=== PATIENT | female | born 1950 | race Caucasian/White ===

== ENCOUNTER 2016-09-20 02:51 | Emergency (ER) | payer MEDICARE, OTHER ==
[~2016-09-20] VITALS: Ht 160 cm; Wt 58.5 kg
[~2016-09-20 02:51] MED LIST: ASPI-664 PO; BENA20TA48 PO; DOCU-144 PO; HYDR-3498 PO; IBUP800T25 PO
[2016-09-20 02:56] VITALS: Ht 160 cm; Wt 58.5 kg
--- NOTE | 2016-09-20 03:48 | RADRPT ---
PROCEDURE: XR Chest. CLINICAL INDICATION: Chest pain TECHNIQUE: AP Portable chest. COMPARISON: 08/24/2014 FINDINGS: There is mild cardiomegaly. The lungs are clear. The osseous structures are unremarkable. IMPRESSION: No acute findings. RPTAT: HIKT .Lauro Alvarenga MD, Date Time Electronically viewed and signed by .Lauro Alvarenga MD, MD on 09/20/2016 03:48 .T/
[2016-09-20] MEDS ORDERED: OMEP40CA6 PO (04:14)
[2016-09-20] MEDS ORDERED: GABA300C16 PO (04:14)
[2016-09-20 04:29] LABS: BASOPHILS % 0.3 % (0.0-2.0); EOSINOPHILS # 0.1 10^3/ul (0.0-0.5); EOSINOPHILS % 0.9 % (0.0-7.0); HEMATOCRIT 37.6 % (37.0-47.0); HEMOGLOBIN 12.7 g/dl (12.0-16.0); MEAN CORPUSCULAR HGB CONC 33.8 g/dl (32.0-37.0); MEAN CORPUSCULAR VOLUME 88.7 fl (82.0-101.0); MEAN PLATELET VOLUME 9.6 fl (7.4-10.4); MONOCYTE # 0.5 10^3/ul (0.3-0.9); MONOCYTES % 5.3 % (0.0-11.0); NEUTROPHIL # 6.5 10^3/ul (1.6-7.5); NEUTROPHILS % 71.3 % (39.0-77.0); PLATELET COUNT 287 10^3/UL (140-415); RED BLOOD COUNT 4.24 10^6/ul (4.20-5.40); RED CELL DISTRIBUTION WIDTH 13.4 % (11.5-14.5); WHITE BLOOD COUNT 9.1 10^3/ul (4.8-10.8)
[2016-09-20] MEDS ORDERED: IBUPROFEN 600 MG TAB PO ONE (04:30)
[2016-09-20 04:50] LABS: ALANINE AMINOTRANSFERASE 34 IU/L (13-69); ALBUMIN 4.6 g/dl (3.3-4.9); ALBUMIN/GLOBULIN RATIO 1.48; ALKALINE PHOSPHATASE 118 IU/L (42-121); ANION GAP 22 (8-16); ASPARTATE AMINO TRANSFERASE 22 IU/L (15-46); BILIRUBIN,INDIRECT 0.2 mg/dl (0-1.1); BILIRUBIN,TOTAL 0.2 mg/dl (0.2-1.3); BLOOD UREA NITROGEN 15 mg/dl (7-20); CALCIUM 9.9 mg/dl (8.4-10.2); CARBON DIOXIDE 27 mmol/L (21-31); CHLORIDE 101 mmol/L (97-110); CREATININE 0.74 mg/dl (0.44-1.00); GLUCOSE 115 mg/dl (70-220); POTASSIUM 3.7 mmol/L (3.5-5.1); SODIUM 146 mmol/L (135-144); TOTAL PROTEIN 7.7 g/dl (6.1-8.1)
[2016-09-20 05:01] LABS: B-TYPE NATRIURETIC PEPTIDE 100 PG/ML (0-125)
[2016-09-20 05:06] LABS: TROPONIN-I < 0.012 ng/ml (0.00-0.12)
--- NOTE | 2016-09-20 05:21 | ERD ---
ER Documentation Chief Complaint Date/Time DATE: 09/20/16 TIME: 05:20 Chief Complaint chest pain w/ sob x 2 days, dizziness HPI This is a very pleasant 65-year-old female comes in with complaints of feeling very anxious and dizzy for the past 2 days. She is also palpitations and right- sided and left-sided chest pain on and off for the past 2 days as well. She relates chest pain which is anxiety. Denies any fevers or chills. Pain mild to moderate intensity no exacerbating or alleviating factors. No nausea no vomiting no fevers no chills. No other current issues. ROS All systems reviewed and are negative except as per history of present illness. Medications Home Meds Active Scripts Ibuprofen* (Motrin*) 800 Mg Tab, 800 MG PO Q6 Y for PAIN, #30 TAB Prov:RIMMA CORONA MD 08/24/14 Docusate Sodium* (Colace*) 100 Mg Capsule, 100 MG PO TID, #30 Prov:ARTEM THORPE MD 08/22/14 Reported Medications Gabapentin* (Gabapentin*) 300 Mg Capsule, 300 MG PO TID, #90 CAP 09/20/16 Omeprazole* (Omeprazole*) 40 Mg Capsule.dr, 40 MG PO DAILY, #30 CAP 09/20/16 Benazepril Hcl* (Benazepril Hcl*) 20 Mg Tablet, 20 MG PO DAILY, TAB 08/22/14 Discontinued Reported Medications Aspirin (Low Dose Aspirin) 81 Mg Tablet.dr, 81 MG PO 08/22/14 Discontinued Scripts Hydrocodone Bit-Acetaminophen* ([place]*) 5-325 Mg Tab, 1 TAB PO Q6 Y for PAIN, # 12 TAB Prov:ARTEM THORPE MD 08/22/14 Allergies Allergies: Coded Allergies: No Known Allergy (Unverified , 09/20/16) PMhx/Soc Medical and Surgical Hx: pt denies Medical Hx History of Surgery: No Anesthesia Reaction: No Hx Neurological Disorder: No Hx Respiratory Disorders: No Hx Cardiac Disorders: Yes (htn) Hx Psychiatric Problems: No Hx Miscellaneous Medical Probl: No Hx Alcohol Use: No Hx Substance Use: No Hx Tobacco Use: No Smoking Status: Never smoker Physical Exam Vitals Vital Signs Date Time Temp Pulse Resp B/P Pulse Ox O2 Delivery O2 Flow Rate FiO2 09/20/16 03:10 97.9 68 20 160/61 99 Room Air 09/20/16 02:56 97.9 71 20 195/78 97 Physical Exam Const: [] Head: Atraumatic Eyes: Normal Conjunctiva ENT: Normal External Ears, Nose and Mouth. Neck: Full range of motion..~ No meningismus. Resp: Clear to auscultation bilaterally Cardio: Regular rate and rhythm, no murmurs Abd: Soft, non tender, non distended. Normal bowel sounds Skin: No petechiae or rashes Back: No midline or flank tenderness Ext: No cyanosis, or edema Neur: Awake and alert Psych: Normal Mood and Affect Result Diagram: 09/20/16 0321 09/20/16 0321 Results 24 hrs Laboratory Tests Test 09/20/16 03:21 White Blood Count 9.110^3/ul Red Blood Count 4.2410^6/ul Hemoglobin 12.7g/dl Hematocrit 37.6% Mean Corpuscular Volume 88.7fl Mean Corpuscular Hemoglobin 30.0pg Mean Corpuscular Hemoglobin Concent 33.8g/dl Red Cell Distribution Width 13.4% Platelet Count 45630^3/UL Mean Platelet Volume 9.6fl Neutrophils % 71.3% Lymphocytes % 22.0% Monocytes % 5.3% Eosinophils % 0.9% Basophils % 0.3% Nucleated Red Blood Cells % 0.0/100WBC Neutrophils # 6.510^3/ul Lymphocytes # 2.010^3/ul Monocytes # 0.510^3/ul Eosinophils # 0.110^3/ul Basophils # 0.010^3/ul Nucleated Red Blood Cells # 0.010^3/ul Sodium Level 146mmol/L Potassium Level 3.7mmol/L Chloride Level 101mmol/L Carbon Dioxide Level 27mmol/L Anion Gap 22 Blood Urea Nitrogen 15mg/dl Creatinine 0.74mg/dl Glucose Level 115mg/dl Calcium Level 9.9mg/dl Total Bilirubin 0.2mg/dl Direct Bilirubin 0.00mg/dl Indirect Bilirubin 0.2mg/dl Aspartate Amino Transf (AST/SGOT) 22IU/L Alanine Aminotransferase (ALT/SGPT) 34IU/L Alkaline Phosphatase 118IU/L Troponin I < 0.012ng/ml B-Type Natriuretic Peptide 100PG/ML Total Protein 7.7g/dl Albumin 4.6g/dl Globulin 3.10g/dl Albumin/Globulin Ratio 1.48 Current Medications Medications (Trade) Dose Ordered Sig/Rema Route PRN Reason Start Time Stop Time Status Last Admin Dose Admin Ibuprofen (Motrin) 600 mg ONCE ONCE PO 09/20/16 04:30 09/20/16 04:31 DC 09/20/16 04:26 Procedures/MDM EKG: Rate/Rhythm: [Normal Sinus Rhythm] QRS, ST, T-waves: [No changes consistent w/ acute ischemia] Impression: [No evidence of ischemia or arrhythmia] Chest X-ray 1V Interpreted by me: Soft Tissue: No acute abnormalities Bones: No acute abnormalities Mediastinum/Cardiac Silhouette/Lungs: [No acute abnormalities] Patient's thoracic symptoms have stabilized while in the department and are stable for outpatient follow up. Exam and work up not consistent w/ ischemia, arrhythmia, PE or dissection. Patient likely has underlying anxiety. At this point clinically stable. Will be discharged home a short course of Ativan and meclizine. Return for worsening symptoms. Departure Diagnosis: Primary Impression: Chest pain Chest pain type: unspecified Qualified Code: R07.9 - Chest pain, unspecified type Additional Impression: Anxiety Condition: Stable SHANELL SAAVEDRA Sep 20, 2016 05:21
[2016-09-20 05:23] LABS: INR 0.85; PROTIME 11.6 Sec (12.2-14.2); PT RATIO 0.9
[2016-09-20] MEDS ORDERED: MECL12.574 PO (05:29)
[2016-09-20] MEDS ORDERED: LORA1TAB PO (05:29)
[2016-09-20] MEDS ORDERED: MECL-77 PO (05:29)
[2016-09-20] MEDS ORDERED: MECLIZINE 12.5 MG TAB PO ONE (05:30)
[2016-09-20 05:55] VITALS: BP 135/82; PULSE 68; RESP 19; TEMP 97.9
== END 2016-09-20 05:56 | disposition home or self-care (01) ==
LOC: E/R 02:51
DX: R07.9 Chest pain, unspecified (principal); F41.9 Anxiety disorder, unspecified; I10 Essential (primary) hypertension; R06.02 Shortness of breath; Z79.82 Long term (current) use of aspirin
CPT/HCPCS: 36415; 71010; 80053; 83880; 84484; 85025; 85610; 85730; 93005

== ENCOUNTER 2017-08-26 14:52 | Emergency (ER) | END 2017-08-26 18:05 | disposition home or self-care (01) ==

== ENCOUNTER 2017-09-02 18:46 | Emergency (ER) | END 2017-09-02 21:21 | disposition home or self-care (01) ==